=== PATIENT | female | born 1990 | race Caucasian/White ===

== ENCOUNTER 2018-05-04 18:09 | Emergency (ER) | payer BC, OTHER ==
[~2018-05-04] VITALS: Ht 167.6 cm; Wt 73.9 kg
[2018-05-04 18:17] VITALS: BP 104/73
[2018-05-04 19:25] VITALS: BP 110/74
[2018-05-04] MEDS ORDERED: Ondansetron ODT 8mg tab ORAL ONE (19:45)
--- NOTE | 2018-05-04 19:58 | Emergency Room Report ---
History of Present Illness General Chief Complaint: Lower Back Pain or Injury Source: Patient Present Illness HPI Pt presents to the ED c/o 07/03 in severity Low back pain and tenderness s/p child jumping on her back while she was laying on the ground. pt. reports previous hx of back problems however since incident with child pt. is having increased pain and reports paresthesias to the bilateral 5th toes that radiates up the posterior calves and thighs. Pt. denies fevers or chills. She denies recent spinal procedures. Denies hx of cancer. Denies loss of sensation or gross motor movements of the extremities, incontinence of bowel or bladder. Denies CP, Palpitations, LOC, AMS, dizziness, Changes in Vision, weakness or a sudden severe headache. Allergies: Coded Allergies: No Known Allergies (Unverified , 05/04/18) Patient History Past Medical History: see triage record Past Surgical History: none Pertinent Family History: none Now: No Reviewed Nursing Documentation: PMH: Agreed; PSxH: Agreed Nursing Documentation-PMH Past Medical History: No Stated History Review of Systems All Other Systems: negative except mentioned in HPI Physical Exam Vital Signs Date Time Temp Pulse Resp B/P (MAP) Pulse Ox O2 Delivery O2 Flow Rate FiO2 05/04/18 18:06 98.3 68 16 104/73 99 Room Air 98.2 Sp02 EP Interpretation: reviewed, normal General Appearance: alert, GCS 15, non-toxic, mild distress Head: normocephalic, atraumatic Eyes: bilateral eye normal inspection, bilateral eye PERRL ENT: hearing grossly normal, normal voice Neck: full range of motion Respiratory: lungs clear, normal breath sounds, no respiratory distress, no wheezing, speaking full sentences Cardiovascular #1: regular rate, rhythm Musculoskeletal: back normal, gait/station normal, normal range of motion, tender - TTP mostly on Lumbar left sided paraspinal musculature, however ttp to midline as well. no obvious step-offs, pt. ambulatory Neurologic: alert, oriented x3, responsive, motor strength/tone normal, sensory intact, normal gait, speech normal, other - no saddle anesthesia, paresthesias to bilateral 5th toes, upcalves and thighs posteriorly. , grossly normal Psychiatric: judgement/insight normal Skin: normal color, no rash, warm/dry, well hydrated Medical Decision Making PA Attestation Dr. Raman is my supervising Physician whom patient management has been discussed with. Diagnostic Impression: Primary Impression: Low back pain Qualified Codes: M54.41 - Lumbago with sciatica, right side; M54.42 - Lumbago with sciatica, left side; G89.29 - Other chronic pain Additional Impressions: Intervertebral disc disorder Degenerative lumbar spinal stenosis ER Course Pt presents to the ED c/o 07/03 in severity Low back pain and tenderness s/p child jumping on her back while she was laying on the ground. pt. reports previous hx of back problems however since incident with child pt. is having increased pain and reports paresthesias to the bilateral 5th toes that radiates up the posterior calves and thighs. Pt. denies fevers or chills. She denies recent spinal procedures. Denies hx of cancer. Denies loss of sensation or gross motor movements of the extremities, incontinence of bowel or bladder. Denies CP, Palpitations, LOC, AMS, dizziness, Changes in Vision, weakness or a sudden severe headache. Ddx considered but are not limited to Fracture, dislocation, contusion, Sprain/ Strain/Spasm, Epidural abscess, Neoplastic mets. Vital signs: are WNL, pt. is afebrile H&PE are most consistent with musculoskeletal injury will perform imaging to r/ o fractures/dislocations. Pt. does not have evidence of cauda equina, and is ambulatory with out assistance and with out neurological deficits or gait disturbances. ORDERS: - Urine Hcg: Negative CT Imaging : Unremarkable other than degenerative changes. ED INTERVENTIONS: - Soma PO -Lidoderm TP -Tylenol PO DISCHARGE: At this time pt. is stable for d/c to home. Will provide printed patient care instructions, and any necessary prescriptions. Care plan and follow up instructions have been discussed with the patient prior to discharge. Labs Test 05/04/18 18:48 Urine HCG, Qualitative Negative (NEGATIVE) CT/MRI/US Diagnostic Results CT/MRI/US Diagnostic Results : Imaging Test Ordered: CT L-Spine and T-Spine No Contrast Impression "Degenerative disc disease in the lower lumbar spine are detailed as above, age indeterminate." Per official radiology report- Please see report for specific details. Last Vital Signs Date Time Temp Pulse Resp B/P (MAP) Pulse Ox O2 Delivery O2 Flow Rate FiO2 05/04/18 18:53 98.2 05/04/18 18:17 16 104/73 99 Room Air 05/04/18 18:06 68 Disposition: HOME, SELF-CARE Condition: Stable Scripts Lidocaine (Lidoderm) 1 Each Adh..patch 1 PATCH TOPIC DAILY, #30 PATCH 0 Refills Patch(es) may remain in place for up to 12 hours in any 24-hour period. Prov: Shelbi Hunt 05/04/18 Ibuprofen* (MOTRIN*) 600 Mg Tablet 600 MG ORAL THREE TIMES A DAY, #30 TAB 0 Refills Prov: Shelbi Hunt 05/04/18 Tramadol Hcl* (ULTRAM*) 50 Mg Tablet 50 MG ORAL Q8HR PRN for For Pain, #15 TAB 0 Refills Prov: Shelbi Hunt 05/04/18 Cyclobenzaprine Hcl* (FLEXERIL*) 10 Mg Tablet 10 MG ORAL THREE TIMES A DAY, #15 TAB Prov: Shelbi Hunt 05/04/18 Referrals: NOT CHOSEN IPA/MD,REFERRING (PCP) Patient Instructions: Back Pain, Adult, Herniated Disk, [id number], Spinal Stenosis, [id number] Additional Instructions: Take medications as directed. Follow up with an [employer] [facility] in 3-5 days, even if your symptoms have resolved. If symptoms persist MRI may be required at the discretion of your PCP or Ortho Specialist. --Please review list of primary care clinics, if you do not already have a primary care provider who can give you an Orthopedic Referral. Return sooner to ED if new symptoms occur, or current symptoms become worse. Do not drink alcohol, drive, or operate heavy machinery while taking Tramadol or Flexeril as this may cause drowsiness. - Please note that this Emergency Department Report was dictated using [employer] van [employer] technology software, occasionally this can lead to erroneous entry secondary to interpretation by the dictation equipment. Shelbi Hunt May 04, 2018 19:58
--- NOTE | 2018-05-04 21:11 | Diagnostic Imaging Report ---
EXAM: CT Lumbar Spine Without Intravenous Contrast CLINICAL HISTORY: prev injury 10 yrs ago, mild herniated disc, presented today she was laying on the floor and a child jumped on her back in lumbar area, pain in the lumbar area, numbness tingling pinky toes bilaterally, radiates up to the thighs posteriorly TECHNIQUE: Axial computed tomography images of the lumbar spine without intravenous contrast. CTDI is 14.62 mGy and DLP is 482.53 mGy-cm. One or more of the following dose reduction techniques were used: automated exposure control, adjustment of the mA and/or kV according to patient size, use of iterative reconstruction technique. Coronal and sagittal reconstructions are performed COMPARISON: No relevant prior studies available. FINDINGS: Vertebrae: Unremarkable. No acute fracture. Discs/spinal canal/neural foramina: L4-5: broad-based circumferential disc extrusion measuring about 6 mm in AP and 24 mm craniocaudal migrating along superior aspect of L5 inferior aspect of L4, best seen on series 18, image 44 and series 15, image 56, mildly compressing on the thecal sac slightly worse left. Mild bilateral neuroforaminal narrowing at this level. L5-S1: No significant spinal canal stenosis. Mild to moderate bilateral neuroforaminal narrowing. No significant spinal canal stenosis or neuroforaminal narrowing at other levels of the lumbar spine. Soft tissues: Unremarkable. IMPRESSION: Degenerative disc disease in the lower lumbar spine are detailed as above, age indeterminate.
--- NOTE | 2018-05-04 21:36 | Diagnostic Imaging Report ---
EXAM: CT Thoracic Spine Without Intravenous Contrast CLINICAL HISTORY: prev injury 10 yrs ago, mild herniated disc, presented today she was laying on the floor and a child jumped on her back in lumbar area, pain in the lumbar area, numbness tingling pinky toes bilaterally, radiates up to the thighs posteriorly TECHNIQUE: Axial computed tomography images of the thoracic spine without intravenous contrast. CTDI is 21.51 mGy and DLP is 900.12 mGy-cm. One or more of the following dose reduction techniques were used: automated exposure control, adjustment of the mA and/or kV according to patient size, use of iterative reconstruction technique. Coronal and sagittal reconstructions are performed COMPARISON: No relevant prior studies available. FINDINGS: Vertebrae: Unremarkable. No acute fracture. Discs/spinal canal/neural foramina: No acute findings. No spinal canal stenosis. Soft tissues: Unremarkable. IMPRESSION: No acute findings.
[2018-05-04] MEDS ORDERED: IBUPROFEN600 MG ORAL (21:58)
[2018-05-04] MEDS ORDERED: CYCLOBENZAPRINE10 MG ORAL (21:58)
[2018-05-04] MEDS ORDERED: TRAMADOL HCL50 MG ORAL (21:58)
[2018-05-04] MEDS ORDERED: LIDODERM700 M1 TOPIC (21:58)
[2018-05-04 22:10] VITALS: BP_SYST 110; BP_SYST 114; BP_DIAS 69; BP_DIAS 74
== END 2018-05-04 22:10 | disposition home or self-care (01) ==
LOC: EDBD 18:09 → EMR 19:00
DX: M51.17 Intervertebral disc disorders with radiculopathy, lumbosacral region (principal); M48.061 Spinal stenosis, lumbar region without neurogenic claudication; M54.41 Lumbago with sciatica, right side; M54.42 Lumbago with sciatica, left side; G89.29 Other chronic pain
CPT/HCPCS: 72128; 72131; 81025; 99284; Q0162